=== PATIENT | female | born 1980 | race Caucasian/White ===

== ENCOUNTER 2017-10-07 15:11 | Emergency (ER) | payer MEDICAID ==
[~2017-10-07] VITALS: Ht 165.1 cm; Wt 59.0 kg
[~2017-10-07 15:11] MED LIST: ALPR2TAB2 PO; LAMO150T PO; METOPROLOL PO; OXYCONTIN PO; POTASSIUM PO; QUET25TA3 PO
--- NOTE | 2017-10-07 15:24 | NUR ---
DR CASTILLO AT THE BEDSIDE FOR MSE.
[2017-10-07] MEDS ORDERED: LIDOCAINE HCL 2% 20 ML VIAL TP ONE (15:30)
[2017-10-07] MEDS ORDERED: HYDROMORPHONE 1 MG/1 ML DISP.SYRIN IM ONE (15:30)
[2017-10-07] MEDS ORDERED: PROMETHAZINE HCL 25 MG/1 ML VIAL IM ONE (15:30)
[2017-10-07] MEDS ORDERED: SULFAMETH/TRIMETH 800/160 MG TABLET PO ONE (15:45)
[2017-10-07] MEDS ORDERED: PROMETHAZINE HCL 25 MG/1 ML VIAL ONE (15:48)
[2017-10-07] MEDS ORDERED: HYDROMORPHONE 2 MG/1 ML DISP.SYRIN ONE (15:48)
--- NOTE | 2017-10-07 15:58 | NUR ---
DRESSING APPLIED TO LT/RT FA PER MD ORDER.
[2017-10-07 15:59] VITALS: BP 121/79
--- NOTE | 2017-10-07 16:00 | NUR ---
Patient discharged to home in stable conditon. Written and verbal after care instructions given. Patient verbalizes understanding of instructions. Pt left ER w/ steady gait accompained by family.
[2017-10-07] MEDS ORDERED: SULFAMETH/TRIMETH 800/160 MG TABLET ONE (16:09)
== END 2017-10-07 16:02 | disposition home or self-care (01) ==
LOC: ER 15:13
DX: L02.414 Cutaneous abscess of left upper limb (principal); I48.91 Unspecified atrial fibrillation
CPT/HCPCS: 10060; 96372 ×2; 99284; A4663; J1170; J2550

== ENCOUNTER 2017-10-27 17:05 | Emergency (ER) | payer MEDICAID ==
[~2017-10-27] VITALS: Ht 165.1 cm; Wt 59.0 kg
[2017-10-27] MEDS ORDERED: ACETAMINOPHEN ES 500 MG TABLET PO ONE (17:30)
[2017-10-27] MEDS ORDERED: LEVOFLOXACIN 750MG/D5W 150 ML IV ONE ×2 (17:30→17:43)
[2017-10-27] MEDS ORDERED: CEFEPIME HCL 1 G in IV DEXTROSE 5% 50 ML IV ONE (17:30)
[2017-10-27] MEDS ORDERED: CEFEPIME HCL 1 G VIAL ONE (17:44)
[2017-10-27 18:02] LABS: BASOPHILS # (AUTO) 0.1 K/uL (0.0-8.0); BASOPHILS % (AUTO) 0.9 % (0.0-2.0); EOSINOPHILS # (AUTO) 0.1 K/uL (0.0-0.7); EOSINOPHILS % (AUTO) 0.5 % (0.0-7.0); HEMATOCRIT 36.7 % (31.2-41.9); HEMOGLOBIN 12.2 g/dL (10.9-14.3); LYMPHOCYTES # (AUTO) 1.9 K/uL (20.0-40.0); LYMPHOCYTES % (AUTO) 11.5 % (20.5-51.5); MEAN CORPUSCULAR HEMOGLOBIN 29.7 uug (24.7-32.8); MEAN CORPUSCULAR HGB CONC 33 g/dL (32.3-35.6); MONOCYTES % (AUTO) 11.8 % (0.0-11.0); NEUTROPHILS # (AUTO) 12.7 K/uL (1.8-8.9); NEUTROPHILS % (AUTO) 75.3 % (38.5-71.5); PLATELET COUNT (AUTO) 365 K/uL (179-408); RED BLOOD CELL COUNT(AUTO) 4.13 MIL/uL (3.63-4.92); WHITE BLOOD COUNT (AUTO) 16.9 K/uL (3.8-11.8)
[2017-10-27 18:06] LABS: CREATININE 0.7 mg/dL (0.6-1.3); POTASSIUM 3.5 mmol/L (3.5-5.1)
[2017-10-27 18:21] LABS: BILIRUBIN,DIRECT 0.1 mg/dL (0.0-0.2); BILIRUBIN,TOTAL 0.4 mg/dL (0.2-1.0)
--- NOTE | 2017-10-27 18:33 | NUR ---
LABS/CXR/EKG/MEDS COMPLETED, SALINE LOCK TO RT FOOT. MONITOR SHOWS SINUS TACH AT 115, PO2=97% ON ROOM AIR.
--- NOTE | 2017-10-27 18:56 | NUR ---
MEGHANN EDWARDS CALLED AND STATED SHE WAS GOING TO CALL MEGHANN FORTE FOR TRANSFER TO [facility].
--- NOTE | 2017-10-27 19:04 | NUR ---
SBAR REPORT TO CHAVO DIAZ.
--- NOTE | 2017-10-27 19:10 | NUR ---
JUANCHO spoke to John PÉREZ) who informed staff that Dr. Andrade is accepting the patient for transfer to [facility].
--- NOTE | 2017-10-27 19:52 | NUR ---
Spoke with [facility] Nursing Control Inspector Lisbeth, states patient is to be transferred to room 315A, [facility].
--- NOTE | 2017-10-27 20:05 | NUR ---
Contacted [facility], spoke with HEIDY Haywood of ambulance @[id number], Trip #[id number]. Provided [place] Authorization # [id number].
--- NOTE | 2017-10-27 20:26 | NUR ---
Report given to Cris WHITESIDE [facility].
--- NOTE | 2017-10-27 20:30 | NUR ---
Noticed patient not in bed, but in bathroom. Pt reports she's having withdrawals and has the "runs".
--- NOTE | 2017-10-27 20:50 | NUR ---
Patient exited room demanding to smoke a cigarette. Education provided regarding hospital smoking policy and tobacco cessation. Patient visibly agitated, crying in room. ERMD notified, orders received.
[2017-10-27] MEDS ORDERED: LORAZEPAM 1 MG TABLET ONE (21:00)
[2017-10-27] MEDS ORDERED: LORAZEPAM 0.5 MG TABLET PO ONE (21:00)
--- NOTE | 2017-10-27 21:45 | NUR ---
[facility] arrived for patient transport.
--- NOTE | 2017-10-27 21:50 | NUR ---
Patient Tranfers to outside Facility Physician: Dr. Andrade Location: [facility] ROOM 315A
== END 2017-10-27 22:00 | disposition short-term general hospital (02) ==
LOC: ER 17:06
DX: L02.414 Cutaneous abscess of left upper limb (principal); I48.91 Unspecified atrial fibrillation; Z88.1 Allergy status to other antibiotic agents; Z88.2 Allergy status to sulfonamides
CPT/HCPCS: 36415; 70030-TC; 71045; 73110; 83605; 85025; 85730; 87040; 93005; A4663; J0692; J1956; J7060

== ENCOUNTER 2019-09-29 01:23 | Emergency (ER) | payer SELFPAY ==
[~2019-09-29] VITALS: Ht 165.1 cm; Wt 65.8 kg
[~2019-09-29 01:23] MED LIST changes: -LAMO150T PO; +LAMO150T6 PO
--- NOTE | 2019-09-29 02:08 | NUR ---
Dr. Sanchez at bedside for MSE
[2019-09-29] MEDS ORDERED: MORPHINE SULFATE 4 MG/1 ML DISP.SYRIN ONE (02:22)
[2019-09-29] MEDS ORDERED: MORPHINE SULFATE 4 MG/1 ML DISP.SYRIN IM ONE (02:30)
--- NOTE | 2019-09-29 02:41 | NUR ---
at bedside to drive patient home if discharged
--- NOTE | 2019-09-29 03:02 | NUR ---
Ultrasound at bedside
--- NOTE | 2019-09-29 03:40 | NUR ---
Patient discharged to home in stable conditon. Written and verbal after care instructions given. Patient verbalizes understanding of instructions. Pt ambulated out of ER with steady gait, no acute signs of distress, VSS, all belongings taken, to be driven home via private vehicle by .
[2019-09-29 03:41] VITALS: BP 125/80
== END 2019-09-29 03:41 | disposition home or self-care (01) ==
LOC: ER 01:30
DX: L03.116 Cellulitis of left lower limb (principal); M79.652 Pain in left thigh; I48.91 Unspecified atrial fibrillation; F11.10 Opioid abuse, uncomplicated; F15.10 Other stimulant abuse, uncomplicated; F41.9 Anxiety disorder, unspecified; Z88.1 Allergy status to other antibiotic agents; Z88.2 Allergy status to sulfonamides; Z88.8 Allergy status to other drugs, medicaments and biological substances; Z79.899 Other long term (current) drug therapy
CPT/HCPCS: 36415; 82550; 93970; 96372; 99284; J2270; A4663

== ENCOUNTER 2020-05-31 00:53 | Emergency (ER) | payer MEDICAID ==
[~2020-05-31] VITALS: Ht 165.1 cm; Wt 56.7 kg
--- NOTE | 2020-05-31 01:00 | NUR ---
Patient presents to ER with c/o rash/open skin to BUE x 2 weeks [employer]. States she is homeless but denies drug use.
[2020-05-31] MEDS ORDERED: CLINDAMYCIN HCL 150 MG CAPSULE PO ONE (01:15)
[2020-05-31] MEDS ORDERED: CLINDAMYCIN HCL 300 MG CAPSULE ONE (01:17)
--- NOTE | 2020-05-31 01:22 | NUR ---
Patient discharged to home in stable condition. Written and verbal after care instructions given. Patient verbalizes understanding of instructions. Stressed follow up or return to ER for worsening s/s. Ambulated from ER with stable gait. All belongings with patient. VSS
[2020-05-31 01:23] VITALS: BP 131/87
== END 2020-05-31 01:23 | disposition home or self-care (01) ==
LOC: ER 00:56
DX: L03.119 Cellulitis of unspecified part of limb (principal); L98.491 Non-pressure chronic ulcer of skin of other sites limited to breakdown of skin; Z88.1 Allergy status to other antibiotic agents; Z88.2 Allergy status to sulfonamides; F41.9 Anxiety disorder, unspecified; Z79.899 Other long term (current) drug therapy; F15.10 Other stimulant abuse, uncomplicated; F11.10 Opioid abuse, uncomplicated
CPT/HCPCS: A4663